=== PATIENT | male | born 1945 | race Caucasian/White ===

== ENCOUNTER 2017-05-21 23:16 | Inpatient (IN) | payer MEDICARE ==
[~2017-05-21] VITALS: Ht 175.3 cm; Wt 100.0 kg
[~2017-05-21 23:16] MED LIST: ASPIRIN EC81 MG PO; ATORVASTATIN CA40 MG PO; FLEXERIL PO; LANTUS SOLOSTAR SC; LEVOTHYROXIN150 MCG PO; METFORMIN500 MG PO; NAPROSYN500 MG PO; OMEPRAZOLE20 M2 PO; PLAVIX75 MG PO; ULTRAM50 M1 PO; VICTOZA18 MG/3 ML SC
[2017-05-21 23:49] LABS: HEMATOCRIT 42.7 % (39.0-50.0); HEMOGLOBIN 15.1 g/dl (14.0-18.0); IMMATURE GRANULOCYTES 0.3 % (0.0-1.0); MEAN CELL VOLUME 95.5 fL CALC (80.0-100.0); MEAN CORPUSCULAR HGB 33.8 pG CALC (26.0-32.0); MEAN CORPUSCULAR HGB CONC 35.4 g/L CALC (32.0-36.0); NEUT# 4.9 thou/uL (1.82-7.42); RED BLOOD COUNT 4.47 mill/uL (4.70-6.10); RED CELL DISTRI WIDTH 12.5 % (11.5-15.5)
[2017-05-21 23:55] LABS: ACT PARTIAL THROMBO TIME 29.7 SECONDS (20.0-32.5); PROTHROMBIN TIME 10.5 SECONDS (9.0-12.5)
[2017-05-21 23:58] LABS: ALBUMIN 4.3 g/dL (3.2-5.0); ALKALINE PHOSPHATASE 77 u/l (38-126); ANION GAP 15 (6-22 (CALC)); BILIRUBIN, TOTAL 0.5 mg/dL (0.0-1.4); BUN 13 mg/dL (8-23); BUN/CREATININE RATIO 20 (12-20 (CALC)); CALCIUM 9.5 mg/dL (8.4-10.2); CARBON DIOXIDE 25 mmol/l (22-30); CHLORIDE 103 mmol/l (95-108); CREATININE 0.7 mg/dL (0.7-1.3); GFR > 60 ML/MIN (>=60 (CALC)); GFR FOR AFR.AMER. > 60 ML/MIN (>=60 (CALC)); GLUCOSE 195 mg/dL (82-115); SGOT/AST 19 u/l (19-48); SGPT/ALT 35 u/l (11-66); SODIUM 139 mmol/l (137-146); TOTAL PROTEIN 6.9 g/dL (6.3-8.2)
[2017-05-22 00:10] LABS: MYOGLOBIN 24 ng/mL (0 - 121)
[2017-05-22] MEDS ORDERED: LIPITOR20 MG PO (00:27)
[2017-05-22 01:40] VITALS: BP 144/76
[2017-05-22 02:29] LABS: URINE BILIRUBIN - DIPSTICK NEGATIVE (NEGATIVE); URINE BLOOD DIPSTICK NEGATIVE (NEGATIVE); URINE CLARITY CLEAR; URINE COLOR YELLOW; URINE GLUCOSE - DIPSTICK >=1000 mg/dL (NEGATIVE); URINE KETONE NEGATIVE (NEGATIVE); URINE LEUK ESTERASE NEGATIVE (NEGATIVE); URINE NITRITE - DIPSTICK NEGATIVE (Negative); URINE PH 5.5 (4.5-8.0); URINE PROTEIN - DIPSTICK NEGATIVE (NEG-TRACE); URINE SPECIFIC GRAVITY <=1.005; URINE UROBILINOGEN - DIPSTICK 0.2 E.U./dL (0.2)
[2017-05-22 02:30] LABS: BARBITURATES NEGATIVE (NEGATIVE); COCAINE NEGATIVE (NEGATIVE); METHADONE NEGATIVE (NEGATIVE); OXCYCODONE NEGATIVE (NEGATIVE); TETRAHYDROCANNABIONOL NEGATIVE (NEGATIVE); TRICYLIC ANTIDEPRESSANTS NEGATIVE (NEGATIVE)
[2017-05-22 05:02] VITALS: BP 115/69
[2017-05-22 08:32] VITALS: BP 116/58
[2017-05-22 11:38] VITALS: BP 120/60
[2017-05-22 16:00] VITALS: BP 127/76
== END 2017-05-22 16:35 | disposition home or self-care (01) | DRG 312 ==
LOC: ENPENDDIS → ED 23:16 → ED-I 05-22 00:46 → ED 05-22 01:30 → MS2 05-22 01:31
PROVIDERS: Emergency Medicine; ADMIT Internal Medicine; ATTEND Internal Medicine
DX: R55 Syncope and collapse (principal); E11.9 Type 2 diabetes mellitus without complications; I10 Essential (primary) hypertension; M79.602 Pain in left arm; E78.5 Hyperlipidemia, unspecified; I25.10 Atherosclerotic heart disease of native coronary artery without angina pectoris; E03.9 Hypothyroidism, unspecified; I25.2 Old myocardial infarction; Z79.84 Long term (current) use of oral hypoglycemic drugs; Z87.891 Personal history of nicotine dependence

== ENCOUNTER 2019-05-21 07:17 | Emergency (ER) | payer MEDICARE ==
[~2019-05-21] VITALS: Ht 175.3 cm; Wt 99.0 kg
[~2019-05-21 07:17] MED LIST changes: +LANTUS SOL100 UNIT/M SC; -LANTUS SOLOSTAR SC; +LIPITOR20 MG PO
[2019-05-21] MEDS ORDERED: ZETIA10 MG PO (07:32)
[2019-05-21] MEDS ORDERED: LOSARTAN POTASS25 MG PO (07:35)
[2019-05-21] MEDS ORDERED: CRESTOR20 MG PO (07:35)
[2019-05-21] MEDS ORDERED: VITAMIN D33000 UNIT PO (07:36)
[2019-05-21] MEDS ORDERED: JARDIANCE25 MG PO (07:37)
[2019-05-21] MEDS ORDERED: FISH OIL1000 MG PO (07:38)
[2019-05-21] MEDS ORDERED: VITAMIN C500 MG PO (07:38)
[2019-05-21] MEDS ORDERED: COQ-10400 MG PO (07:39)
[2019-05-21 07:45] LABS: HEMATOCRIT 41.1 % (39.0-50.0); HEMOGLOBIN 14.2 g/dl (14.0-18.0); IMMATURE GRANULOCYTES 0.3 % (0.0-5.0); MEAN CELL VOLUME 92.4 fL CALC (80.0-100.0); MEAN CORPUSCULAR HGB 31.9 pG CALC (26.0-32.0); MEAN CORPUSCULAR HGB CONC 34.5 g/L CALC (32.0-36.0); NEUT# 3.37 thou/uL (1.82-7.42); RED BLOOD COUNT 4.45 mill/uL (4.70-6.10); RED CELL DISTRI WIDTH 12.5 % (11.5-15.5)
[2019-05-21 08:03] LABS: ALBUMIN 4.2 g/dL (3.2-5.0); ALKALINE PHOSPHATASE 60 u/l (38-126); ANION GAP 14 (6-22 (CALC)); BUN 18 mg/dL (8-23); BUN/CREATININE RATIO 24 (12-20 (CALC)); CARBON DIOXIDE 26 mmol/l (22-30); CHLORIDE 105 mmol/l (95-108); CPK 40 u/l (52-200); CREATININE 0.7 mg/dL (0.7-1.3); GFR > 60 ML/MIN (>=60 (CALC)); GFR FOR AFR.AMER. > 60 ML/MIN (>=60 (CALC)); LIPASE 83 u/l (23-300); POTASSIUM 4.4 mmol/l (3.5-5.1); SGOT/AST 24 u/l (19-48); SODIUM 141 mmol/l (137-146); TOTAL PROTEIN 6.9 g/dL (6.3-8.2)
[2019-05-21 08:20] LABS: BILIRUBIN, TOTAL 0.8 mg/dL (0.0-1.4)
[2019-05-21 08:24] LABS: URINE BILIRUBIN - DIPSTICK NEGATIVE (NEGATIVE); URINE BLOOD DIPSTICK NEGATIVE (NEGATIVE); URINE COLOR YELLOW; URINE GLUCOSE - DIPSTICK >=1000 mg/dL (NEGATIVE); URINE KETONE NEGATIVE (NEGATIVE); URINE LEUK ESTERASE NEGATIVE (NEGATIVE); URINE NITRITE - DIPSTICK NEGATIVE (Negative); URINE PH 6.5 (4.5-8.0); URINE PROTEIN - DIPSTICK TRACE mg/dL (NEG-TRACE); URINE UROBILINOGEN - DIPSTICK 0.2 E.U./dL (0.2)
[2019-05-21 09:53] VITALS: BP 115/58
== END 2019-05-21 10:15 | disposition home or self-care (01) ==
LOC: ED 07:17
PROVIDERS: Family Medicine
DX: M79.18 Myalgia, other site (principal); T46.6X5A Adverse effect of antihyperlipidemic and antiarteriosclerotic drugs, initial encounter; F17.200 Nicotine dependence, unspecified, uncomplicated